=== PATIENT | male | born 1995 | race Caucasian/White ===

== ENCOUNTER → 2024-10-28 | Day surgery (SDC) | payer OTHER ==
[~2024-10-28] MED LIST: FENTANYL CITRATE/PF 100MCG/2 ML INJ ONE; LIDOCAINE HCL 1% 2 ML AMP ONE; LIDOCAINE HCL 2% LOCAL INJ 5 ML SDV VIAL INJ ONE; MELOXICAM7.5 MG PO; MIDAZOLAM HCL 2 MG/2 ML VIAL ONE; MULTI-VITAMIN1 EACH PO; PROPOFOL IV EMULSION 10 MG/ML 20 ML VIAL ONE
[2024-10-28] MEDS: LACTATED RINGER'S 1,000 ML ONE (09:29)
[2024-10-28 11:18] VITALS: TEMP 98.9
[2024-10-28 11:40] VITALS: BP 136/80; PULSE 84; RESP 18; O2SAT 99
== END | disposition home or self-care (01) ==
LOC: OR 08:42
PROVIDERS: ATTEND Internal Medicine Gastroenterology
DX: K52.9 Noninfective gastroenteritis and colitis, unspecified (principal); K64.8 Other hemorrhoids; G47.33 Obstructive sleep apnea (adult) (pediatric); E66.01 Morbid (severe) obesity due to excess calories; Z78.9 Other specified health status; Z79.1 Long term (current) use of non-steroidal anti-inflammatories (NSAID); Z68.42 Body mass index [BMI] 45.0-49.9, adult; Z71.3 Dietary counseling and surveillance
CPT/HCPCS: 45380; 88305; J2003 ×2; J2250; J2704; J7121